=== PATIENT | male | born 1985 | race African-American/Black ===

== ENCOUNTER 2017-10-22 12:22 | Emergency (ER) | payer SELFPAY ==
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
[2017-10-22 13:31] LABS: ABSOLUTE BASOPHIL COUNT 0 /CUMM (0.0-0.2); ABSOLUTE EOSINOPHIL COUNT 0 /CUMM (0.0-0.7); ABSOLUTE GRANULOCYTE CT 8.2 /CUMM (1.4-6.5); ABSOLUTE MONOCYTE COUNT 0.5 /CUMM (0.10-0.60); BASOPHIL % 0.1 % (0.0-2.0); EOSINOPHIL % 0.5 % (0-5); GRANULOCYTE % 76.7 % (42.2-75.2); HEMATOCRIT 42.7 % (42-52); MEAN CORPUSCULAR HGB 29.6 PG (27.0-31.0); MEAN CORPUSCULAR HGB CONC 33.4 G/DL (33.0-37.0); MEAN CORPUSCULAR VOLUME 88.6 FL (80.0-94.0); MEAN PLATELET VOLUME 8.1 FL (7.4-10.4); PLATELET COUNT 259 /CUMM (130-400); RBC DISTRIBUTION WIDTH 14.1 % (11.5-14.5); RED BLOOD CELL CT 4.82 /CUMM (4.70-6.10); WHITE BLOOD CELL COUNT 10.7 /CUMM (4.8-10.8)
--- NOTE | 2017-10-22 14:58 | RADIOLOGY REPORT ---
EXAMINATION: XR HAND, RIGHT CLINICAL INFORMATION: Trauma COMPARISON: None TECHNIQUE: PA, lateral, and oblique views of the right hand. FINDINGS: There is comminuted acute angulated fracture of the fifth metacarpal bone with plantar angulation of the metacarpal head. Adjacent soft tissue swelling noted. No other acute fracture. No acute dislocation. IMPRESSION: Acute comminuted fracture of the fifth metacarpal head.
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
[2017-10-22] MEDS ORDERED: IBUPROFEN600 M1 PO (16:53)
[2017-10-22 17:06] VITALS: BP 163/88
== END 2017-10-22 17:16 ==
LOC: ERH 12:22
PROVIDERS: Emergency Medicine
DX: S62.309A Unspecified fracture of unspecified metacarpal bone, initial encounter for closed fracture (principal); F32.9 Major depressive disorder, single episode, unspecified; W22.01XA Walked into wall, initial encounter; Y92.9 Unspecified place or not applicable; Y93.89 Activity, other specified
CPT/HCPCS: 73130-RT; 80307; G0463; G0480